=== PATIENT | male | born 1970 | race Caucasian/White ===

== ENCOUNTER 2022-11-17 09:39 | Emergency (ER) | payer OTHER, SELFPAY ==
--- NOTE | ~2022-11-17 | CT_ITS ---
EXAMINATION: CT ABDOMEN AND PELVIS WITHOUT CONTRAST CLINICAL INFORMATION: Constipation. Rule out small bowel obstruction. COMPARISON: None available. TECHNIQUE: Multidetector volumetric imaging was performed from the superior aspect of the liver through the pubic symphysis. Sagittal and coronal reformatted images were obtained on the technologist's workstation. Lack of intravenous and oral contrast limits visceral evaluation. This CT examination was performed using dose optimization techniques as appropriate, variously including the following: *Automated exposure control *Adjustment of mA and/or kV according to patient size (this includes techniques or standardized protocols for targeted exams where dose is matched to indication/reason for exam; i.e. extremities or head) *Use of iterative reconstruction technique DLP: 953 mGy-cm FINDINGS: LUNG BASES: The visualized lung bases are unremarkable. LIVER, GALLBLADDER, AND BILIARY TREE: Diffuse decreased hepatic attenuation without focal abnormality. No gallbladder/biliary abnormality. PANCREAS: Mild to moderate fatty atrophy most pronounced in the head without surrounding abnormality. SPLEEN: 14.0 cm without focal abnormality. ADRENAL GLANDS: Unremarkable. KIDNEYS AND URETERS: The kidneys are normal in size, shape, and attenuation. No hydronephrosis, hydroureter, or calculi seen. No perinephric stranding. BLADDER: Unremarkable. GASTROINTESTINAL TRACT: The stomach, small bowel and appendix are unremarkable. The colon and rectum are unremarkable. ABDOMINAL WALL: No significant hernia is appreciated. LYMPH NODES: No lymphadenopathy. VASCULAR: Unremarkable. PELVIC VISCERA: Unremarkable. OSSEOUS STRUCTURES: L4-L5 mild degenerative disc disease, grade 1 anterolisthesis, bilateral neural foraminal narrowing and facet arthropathy without acute abnormality. CT/CT abdomen pelvis wo IV con IMPRESSION: 1. No acute intra-abdominal/pelvic abnormality to explain the patient's symptoms. 2. Hepatic steatosis and mild enlargement without focal abnormality. 3. Pancreatic fatty atrophy without associated abnormality. 4. Borderline enlargement. 5. L4-L5 degenerative changes as detailed above.
[2022-11-17 09:41] VITALS: BP 139/88; PULSE 90; RESP 18; TEMP 36.7; O2SAT 99; BMI 39.0
--- NOTE | 2022-11-17 10:22 | ED.ABDPAIN ---
HPI - Abdominal Pain General Chief Complaint: Abdominal Pain Stated Complaint: Constipation Time Seen by Provider: 11/17/22 10:02 Source: patient Mode of arrival: ambulatory Limitations: no limitations History of Present Illness HPI narrative: 52-year-old male with a history of hypertension, hepatitis C, former substance use presents the ER with complaints of 1 week of abdominal bloating, distention, constipation. Patient reports he initially had 2 days of nausea and vomiting but after he passed a small stool on Tuesday the symptoms resolved. He has not tried any nmvs-rag-nwopqlh medications. He has not tried any dietary changes. He went to his primary care doctor today and he was referred into the ER to rule out a obstruction. No previous history of same. No history of abdominal surgery Related Data Previous Rx's Medication Instructions Recorded docusate sodium 100 mg capsule 100 mg PO BID #60 caps 11/17/22 (Colace) lactulose 10 gram/15 mL oral 10 g (15 mL) PO BEDTIME PRN 11/17/22 solution constipation #90 mL polyethylene glycol 3350 17 17 g PO DAILY #238 grams 11/17/22 gram/dose oral powder (Miralax) Allergies Allergy/AdvReac Type Severity Reaction Status Date / Time No Known Allergies Allergy Unverified 12/20/19 16:05 Review of Systems Review of Systems Yes all other systems are reviewed and are negative Constitutional: Reports no additional constitutional complaints, Denies body ache(s), Denies chills, Denies fever(s), Denies headache(s) and Denies weakness Eyes: Reports no additional eye complaints and Denies change in vision Reports system reviewed and no additional complaints, except as documented, Denies dizziness, Denies headache(s), Denies nasal congestion, Denies nasal discharge and Denies neck pain Cardiovascular: Reports no additional cardiovascular complaints, Denies chest pain, Denies leg edema and Denies dyspnea Respiratory: Reports no additional respiratory complaints, Denies cough and Denies dyspnea Gastrointestinal: Reports no additional gastrointestinal complaints, Reports abdominal pain, Reports constipation, Denies diarrhea, Reports nausea and Reports vomiting Genitourinary: Denies urinary incontinence Musculoskeletal: Reports no additional musculoskeletal complaints, Denies back pain, Denies arthralgias, Denies joint swelling, Denies neck pain, Denies numbness and Denies tingling Skin/Breast: Reports system reviewed and no additional complaints, except as docu and Denies rash Reports system reviewed and no additional complaints, except as documented, Denies dizziness, Denies headache(s), Denies numbness, Denies tingling and Denies weakness PMFSH Past Medical History Attestation statement: The following information was validated with the patient. Source: old records reviewed and nursing notes reviewed Social History Social History Advance Directives: No Advance Directives Information Provided: No Physical Exam ED Vital Signs: Vital Signs - 24 hr 11/17/22 09:41 11/17/22 11:00 Temperature 98.1 F 98.2 F Pulse Rate 90 83 Respiratory Rate 18 16 Blood Pressure 139/88 136/88 Pulse Oximetry 99 95 Oxygen Delivery Method Room Air Room Air BMI result Body Mass Index 39.0 Const General: cooperative, healthy appearing, comfortable and no acute distress Orientation/consciousness: patient oriented x3 Limitations: no limitations HENMT Head: Yes normal to inspection Ears: hearing grossly normal bilaterally Eyes General: appearance normal, both eyes and all related structures Pupils: Equal, round and reactive pupils present Neck Neck: Yes normal visual inspection Chest Chest palpation & inspection: normal inspection of the chest Resp Effort & Inspection: normal respiratory effort Auscultation: clear to auscultation bilaterally Cardio Rate: regular rate Rhythm: regular rhythm Peripheral pulses: Peripheral pulses 2+ throughout GI Other: Abdominal distension, soft, mild diffuse tenderness, hypoactive bowel sound Inspection: Yes normal to inspection Skin General skin exam: no rashes or lesions noted Neuro General: patient oriented x3 and moves all extremities Cranial nerves: Yes Equal, round and reactive pupils present Cognition (Neuro): normal cognition Gait exam (Neuro): Normal gait present Course Course Course Narrative: CT shows no evidence of bowel obstruction. On my independent interpretation there is a mews-hd-ywwhblnc stool burden. Patient was started on a bowel regimen with lactulose p.r.n.. Reviewed dietary changes at home. Reviewed worrisome signs and symptoms of when to return to the emergency room. Comfortable plan for discharge home Medical Decision Making Medical Decision Making MDM Narrative: 52-year-old male with a history of hypertension presents the ER with complaints of 1 week of abdominal bloating, distention, discomfort, constipation. Patient initially had some vomiting for 2 days but this has been resolved after passing a small stool on Tuesday. Patient was seen by primary care referred into the ER for further evaluation On arrival patient has a abdomen which is distended but soft, mild please tender with hypoactive bowel sounds. Will check labs, CT Differential Diagnosis Differential Diagnoses: The differential diagnosis associated with the presentation includes Constipation, obstruction Lab Data MDM Lab Attestation statement: I reviewed the patient's lab results. 11/17/22 10:42 11/17/22 10:42 Labs: Lab Results 11/17/22 11/17/22 Range/Units 10:42 10:42 WBC 6.2 (4.8-10.8) X10*3/uL RBC 4.40 L (4.60-5.80) X10*6/uL Hgb 13.8 L (14.0-18.0) g/dl Hct 40.2 L (42.0-52.0) % MCV 91.4 (80.0-98.0) fL MCH 31.4 (27.0-33.0) pg MCHC 34.3 (31.0-36.0) g/dl RDW 11.6 (11.0-16.0) % Plt Count 120 L (160-400) X10*3/uL MPV 11.8 (9.4-12.4) fL Immature Gran % (Auto) 0.6 H (0.0-0.4) % Neut % (Auto) 65.2 (45-73) % Lymph % (Auto) 24.9 (20-40) % [place] % (Auto) 6.9 (2-11) % Eos % (Auto) 1.9 (0-4) % Baso % (Auto) 0.5 (0-2) % Lymph # (Auto) 1.5 (1.2-4.9) X10*3/uL [place] # (Auto) 0.4 (0.1-1.2) X10*3/uL Eos # (Auto) 0.1 (0.0-0.4) X10*3/uL Baso # (Auto) 0.0 (0.0-0.2) X10*3/uL Abs Immat Gran (auto) 0.04 H (0.00-0.03) X10*3/uL Absolute Neuts (auto) 4.0 (2.0-8.3) x10*3/uL Absolute Nucleated RBC 0.000 (0.0-0.012) X10*3/uL Nucleated RBC % (auto) 0.0 (0.0-0.2) /100WBC Sodium 137 (135-145) mmol/L Potassium 4.5 (3.3-5.1) mmol/L Chloride 102 (96-108) mmol/L Carbon Dioxide 28 (22-29) mmol/L Anion Gap 12 (12-20) BUN 14 (9-16) mg/dL Creatinine 0.87 (0.5-1.4) mg/dL Estim Creat Clear Calc 137.9 Estimated GFR > 60 Random Glucose 129 H (60-115) mg/dL Calcium 9.2 (8.4-10.2) mg/dL Total Bilirubin 0.3 (0.0-1.0) mg/dL Direct Bilirubin 0.1 (0.0-0.5) mg/dL AST 59 H (5-37) U/L ALT 94 H (0-40) U/L Alkaline Phosphatase 77 (39-117) U/L Total Protein 8.1 H (6.5-8.0) g/dL Albumin 4.1 (3.5-5.0) g/dL Lipase 27 (8-78) U/L Independent Interpretation I performed an independent interpretation of an: CT Scan Interpretation: I independently reviewed the CT scan reviewed the radiologist's report, there is a gism-mn-kuryosbm stool burden also noted on my independent interpretation Radiology Impression Discussion of test interpretation with radiology: I have reviewed the radiologist's reading. Radiologist Impression: [place] [id number] CT Scan Report Signed Patient: Rich Rodriguez MR#: [id number] : 1970 Acct:[id number] Age/Sex: 52 / M ADM Date: 11/17/22 Loc: HO.ED Attending Dr: Ordering Physician: Cheyanne Randall NP Date of Service: 11/17/22 Procedure(s): CT abdomen pelvis wo IV con Accession Number(s): [id number] cc: Cheyanne Randall NP~ EXAMINATION: CT ABDOMEN AND PELVIS WITHOUT CONTRAST? CLINICAL INFORMATION: Constipation. Rule out small bowel obstruction. COMPARISON: None available. TECHNIQUE: Multidetector volumetric imaging was performed from the superior aspect of the liver through the pubic symphysis. Sagittal and coronal reformatted images were obtained on the technologist's workstation. Lack of intravenous and oral contrast limits visceral evaluation. This CT examination was performed using dose optimization techniques as appropriate, variously including the following: *Automated exposure control *Adjustment of mA and/or kV according to patient size (this includes techniques or standardized protocols for targeted exams where dose is matched to indication/reason for exam; i.e. extremities or head) *Use of iterative reconstruction technique DLP: 953 mGy-cm FINDINGS: LUNG BASES: The visualized lung bases are unremarkable.? LIVER, GALLBLADDER, AND BILIARY TREE: Diffuse decreased hepatic attenuation without focal abnormality. No gallbladder/biliary abnormality. PANCREAS: Mild to moderate fatty atrophy most pronounced in the head without surrounding abnormality. SPLEEN: 14.0 cm without focal abnormality. ADRENAL GLANDS: Unremarkable.? KIDNEYS AND URETERS: The kidneys are normal in size, shape, and attenuation. No hydronephrosis, hydroureter, or calculi seen. No perinephric stranding. ? BLADDER: Unremarkable.? GASTROINTESTINAL TRACT: The stomach, small bowel and appendix are unremarkable. The colon and rectum are unremarkable.? ABDOMINAL WALL: No significant hernia is appreciated.? LYMPH NODES: No lymphadenopathy. VASCULAR: Unremarkable. PELVIC VISCERA: Unremarkable.? OSSEOUS STRUCTURES: L4-L5 mild degenerative disc disease, grade 1 anterolisthesis, bilateral neural foraminal narrowing and facet arthropathy without acute abnormality.? CT/CT abdomen pelvis wo IV con IMPRESSION: ? 1. No acute intra-abdominal/pelvic abnormality to explain the patient's symptoms. 2. Hepatic steatosis and mild enlargement without focal abnormality. 3. Pancreatic fatty atrophy without associated abnormality. 4. Borderline enlargement. 5. L4-L5 degenerative changes as detailed above. ? Discharge Plan Discharge Clinical Impression: Constipation Patient Disposition: Home, Self-Care Instructions: Constipation (ED) Additional Instructions: Your CT scan shows no signs of a blockage. You do have mild constipation. Increase fluids and fiber in your diet Return for vomiting, worsening pain. Follow-up with your primary care doctor for any continued symptoms Prescriptions: New polyethylene glycol 3350 [Miralax] 17 gram/dose powder 17 g PO DAILY Qty: 238 0RF docusate sodium [Colace] 100 mg capsule 100 mg PO BID Qty: 60 0RF lactulose 10 gram/15 mL solution 10 g PO BEDTIME PRN (Reason: constipation) Qty: 90 0RF Referrals: Regan Palma MD [Primary Care Provider] - 1 week
[2022-11-17 10:45] LABS: MANUAL DIFF FLAG NO
[2022-11-17 10:51] LABS: Basophils Percent Auto 0.5 % (0-2); Eosinophils Absolute Auto 0.1 X10*3/uL (0.0-0.4); Eosinophils Percent Auto 1.9 % (0-4); Hematocrit 40.2 % (42.0-52.0); Hemoglobin 13.8 g/dl (14.0-18.0); Imm Gran Abs Auto 0.04 X10*3/uL (0.00-0.03); Imm Gran Pct Auto 0.6 % (0.0-0.4); Lymphocytes Absolute Auto 1.5 X10*3/uL (1.2-4.9); Lymphocytes Percent Auto 24.9 % (20-40); Mean Corpuscular HGB Conc 34.3 g/dl (31.0-36.0); Mean Corpuscular Hemoglobin 31.4 pg (27.0-33.0); Mean Corpuscular Volume 91.4 fL (80.0-98.0); Mean Platelet Volume 11.8 fL (9.4-12.4); Monocytes Absolute Auto 0.4 X10*3/uL (0.1-1.2); Monocytes Percent Auto 6.9 % (2-11); Neutrophils Percent Auto 65.2 % (45-73); Platelet Count 120 X10*3/uL (160-400); Red Cell Distribution Width 11.6 % (11.0-16.0); White Blood Count 6.2 X10*3/uL (4.8-10.8)
[2022-11-17 11:00] VITALS: BP 136/88; PULSE 83; RESP 16; TEMP 36.8; O2SAT 95
[2022-11-17 11:01] LABS: Alanine Aminotransferase 94 U/L (0-40); Albumin Level 4.1 g/dL (3.5-5.0); Alkaline Phosphatase 77 U/L (39-117); Anion Gap 12 (12-20); Aspartate Amino Transferase 59 U/L (5-37); Bilirubin Direct 0.1 mg/dL (0.0-0.5); Bilirubin Total 0.3 mg/dL (0.0-1.0); Blood Urea Nitrogen 14 mg/dL (9-16); Calcium 9.2 mg/dL (8.4-10.2); Carbon Dioxide 28 mmol/L (22-29); Chloride 102 mmol/L (96-108); Creatinine Clr Calc Pharmacy 137.9; Estimated Glomerular Filt Rate > 60; Glucose Random 129 mg/dL (60-115); Lipase 27 U/L (8-78); Potassium 4.5 mmol/L (3.3-5.1); Sodium 137 mmol/L (135-145); Total Protein 8.1 g/dL (6.5-8.0)
== END 2022-11-17 12:19 | disposition home or self-care (01) ==
PROVIDERS: Nurse Practitioner Family; Emergency Provider Emergency Medicine; PCP Internal Medicine
DX: K59.00 Constipation, unspecified (principal); I10 Essential (primary) hypertension; R10.2 Pelvic and perineal pain; Z79.899 Other long term (current) drug therapy
CPT/HCPCS: 36415; 74176; 80048; 80076; 83690; 85025; 99283

== ENCOUNTER 2022-11-30 11:42 | Outpatient (AMB) | payer OTHER, SELFPAY ==
[2022-11-30 12:28] VITALS: BP 142/80; PULSE 95; TEMP 36.1; O2SAT 96; BMI 39.3
--- NOTE | 2022-11-30 12:28 | MHC.OFFWIV ---
Intake Vital Signs 11/30/22 12:28 Height 5 ft 11 in Weight 127.97 kg BMI 39.3 BP 142/80 H Blood Pressure Location Lt brachial Position Sitting Pulse 95 Pulse Source Pulse Oximeter Temp 97 F Temp Source Temporal Artery Scan Pulse Oximetry (%) 96 Oxygen Delivery Method Room Air Intake Visit Reasons: [employer] RT Foot swelling/pain-Venous Insuff Intake Note: Pt is here c/o right foot swelling. Pt states he was diagnosed with venous insufficiency. Patient Tobacco Use Status: Never used Tobacco Allergies No Known Allergies Allergy (Unverified 11/30/22 12:31) Do you need a note to return to daycare/school/sports/work: Yes HPI HPI Comments History of Present Illness Details 1248 52-year-old male history of hep C, former substance abuse, hypertension, venous insufficiency presenting for evaluation of right foot swelling for the past few months worsening over the past few days . Patient reports he was told he had venous insufficiency and he is not sure if this is related. He had an ultrasound last week for this same complaint which was negative for DVT he had it done at [facility]. He had been told he should get an x-ray of the right foot, he tells me the reason he came in today is because he is having pain, swelling fluctuates and he is currently being followed by vascular. Not on blood thinners. He reports pain is worse with movement better at rest. Physical exam with edema to right foot, ankle. Palpable 2+ pulses anterior tib, posterior tib , dorsalis pedis and popliteal pulses Concerns for inflammatory arthritis versus sprain or strain, low suspicion for DVT as patient did have a negative study last week. Symptoms are unchanged just worsening pain. Unlikely arterial occlusion. Likely fracture, dislocation. Other differentials include inflammatory arthritis. No signs of neurovascular compromise or threat to limb Plan x-ray, prednisone. Educated patient on diagnosis and treatment plan, answered all question, patient verbalizes understanding. At this time patient will be discharged home, advised to return with new or worsening symptoms. Educated on worrisome signs and symptoms and when to return. At this time I feel comfortable discharge home.. [facility] Social History Patient Tobacco Use Status: Never used Tobacco Review of Systems Const Details: Constitutional : No Weight loss, No Fever, No Chills, No Fatigue, No Malaise ENT/Mouth : No sore throat, No Rhinorrhea Eyes: No Eye Pain, No Swelling, No Redness Cardiovascular : No Chest Pain, No SOB, No Dyspnea on Exertion, No Orthopnea, + Edema, No Palpitations Respiratory : No Cough, No Sputum, No Wheezing Gastrointestinal : No Nausea, No Vomiting, No Diarrhea, No Constipation, No abdominal Pain, No Hematochezia, No Melena Genitourinary : No Dysuria, No Urinary Frequency, No Hematuria, Musculoskeletal : No joint pain, No Myalgias, No Joint Swelling Skin : No Skin Lesions, No rash Neuro : No Weakness, No Numbness, No Dizziness, No Headache Psych : No Anxiety/Panic, No Depression All other systems reviewed and are negative All systems reviewed & are unremarkable except as noted in HPI and below Physical Exam Vital Signs: Last Vital Signs Temp 97 F 11/30/22 12:28 Pulse 95 11/30/22 12:28 BP 142/80 H 11/30/22 12:28 Pulse Ox 96 11/30/22 12:28 Oxygen Delivery Method Room Air 11/30/22 12:28 BMI result Body Mass Index 39.3 vss Appearance: Alert.? Oriented X3.? No acute distress.? Head: Normocephalic, atraumatic, no step-offs or deformities Eyes: Pupils equal, round and reactive to light.? CVS: Normal heart rate and rhythm.? Pulses normal.? Respiratory: No respiratory distress.? Breath sounds normal.? Abdomen: Soft and nontender.? Skin: Skin warm and dry.? Normal skin color.? Normal skin turgor.? Extremities: 1+ edema to right foot, ankle. Palpable 2+ pulses anterior tib, posterior tib , dorsalis pedis and popliteal pulses. Negative Tara bilaterally Back: No midline tenderness, no C-spine tenderness, full range of motion, no CVA tenderness bilaterally Neuro: Oriented X 3.? No motor deficit.? No sensory deficit. CN 2-12 intact Assessment & Plan Assessment & Plan (1) Lower extremity edema: Code(s): R60.0 - Localized edema Plan Take your medications as prescribed. If you were prescribed antibiotics today, it is important that you take your medication to their entirety, do not skip any doses, do not finish them early. Follow-up with your primary care provider this week. Return to the emergency department with new or worsening symptoms. Such as fevers, chills, chest pain, shortness of breath, nausea, vomiting, dizziness, headache, vision changes, lethargy In case of emergency call 911 Orders: Orders XR foot RT min 3V Today R60.0 - Localized edema XR ankle RT 2V Today R60.0 - Localized edema Medications: New prednisone 40 mg (2 x 20 mg) PO DAILY 5 days 10 tabs 0RF naproxen 500 mg PO BID PRN 14 tabs 0RF pain Coding Level of Care Code Est Pt Level 3 (67074) Diagnoses Lower extremity edema R60.0
== END 2022-11-30 13:28 | disposition home or self-care (01) ==
PROVIDERS: PCP Internal Medicine; Visit Provider Physician Assistant
DX: R60.0 Localized edema (principal)
CPT/HCPCS: 99213

== ENCOUNTER 2022-11-30 12:55 | Outpatient (REF) | payer OTHER, SELFPAY ==
--- NOTE | ~2022-11-30 | XR_ITS ---
EXAMINATION:XR ankle RT 2V, XR foot RT min 3V VIEWS ACQUIRED: Frontal lateral and oblique CLINICAL INFORMATION: Reason for Exam R60.0 - Localized edema COMPARISON: None available at the time of this dictation. FINDINGS: There is no evidence of acute fracture or dislocation. Intertarsal, tarsometatarsal, metatarsophalangeal and interphalangeal joints are intact. Surrounding soft tissues is normal. , There is a small inferior calcaneal spur. Ankle mortise is preserved. Talar dome is intact. Medial and lateral malleoli are normal. There is partial soft tissue ossification of the interosseous membrane distal tibiofibular. XR/XR ankle RT 2V IMPRESSION: - No fracture. - Small inferior calcaneal spur. - Partial soft tissue ossification of the interosseous membrane distal tibiofibular.
--- NOTE | ~2022-11-30 | XR_ITS ---
EXAMINATION:XR ankle RT 2V, XR foot RT min 3V VIEWS ACQUIRED: Frontal lateral and oblique CLINICAL INFORMATION: Reason for Exam R60.0 - Localized edema COMPARISON: None available at the time of this dictation. FINDINGS: There is no evidence of acute fracture or dislocation. Intertarsal, tarsometatarsal, metatarsophalangeal and interphalangeal joints are intact. Surrounding soft tissues is normal. , There is a small inferior calcaneal spur. Ankle mortise is preserved. Talar dome is intact. Medial and lateral malleoli are normal. There is partial soft tissue ossification of the interosseous membrane distal tibiofibular. XR/XR foot RT min 3V IMPRESSION: - No fracture. - Small inferior calcaneal spur. - Partial soft tissue ossification of the interosseous membrane distal tibiofibular.
== END 2022-11-30 12:56 | disposition home or self-care (01) ==
LOC: HO.HMGCX 12:55
PROVIDERS: PCP Internal Medicine; Visit Provider Physician Assistant
DX: R60.0 Localized edema (principal)
CPT/HCPCS: 73600; 73630

== ENCOUNTER 2022-12-20 13:47 | Outpatient (AMB) | payer OTHER, SELFPAY ==
[2022-12-20 14:45] VITALS: BP 130/78; PULSE 80; TEMP 36.6; O2SAT 97; BMI 39.2
--- NOTE | 2022-12-20 14:45 | MHC.OFFWIV ---
Intake Vital Signs 12/20/22 14:45 Height 5 ft 11 in Weight 281 lb BMI 39.2 BP 130/78 Blood Pressure Location Rt brachial Position Sitting Pulse 80 Pulse Source Pulse Oximeter Temp 97.8 F Temp Source Temporal Artery Scan Pulse Oximetry (%) 97 Intake Visit Reasons: EST/right foot swelling Intake Note: pt is here for c/o right foot swelling and leg swelling Patient Tobacco Use Status: Never used Tobacco Allergies No Known Allergies Allergy (Verified 12/20/22 15:20) Medication List - Last Reconciled 12/20/22 by Jake Walsh MD hydrochlorothiazide 25 mg PO DAILY losartan 50 mg PO DAILY naproxen 500 mg PO BID PRN Do you need a note to return to daycare/school/sports/work: Yes HPI EST/right foot swelling HPI Details 52-year-old male presents to the office for a sick visit. Patient has history of venous insufficiency and varicose veins. He recently had an ultrasound of both his extremities and deep vein thrombosis was ruled out. Presents to the office reporting pain in the right foot. Symptoms have been present an ongoing for the past week. No recent fall or injury. He stands for long duration at work. Patient is wearing compression stockings. Requires a note for work. [facility] Social History Patient Tobacco Use Status: Never used Tobacco Physical Exam Vital Signs: Last Vital Signs Temp 97.8 F 12/20/22 14:45 Pulse 80 12/20/22 14:45 BP 130/78 12/20/22 14:45 Pulse Ox 97 12/20/22 14:45 BMI result Body Mass Index 39.2 Extrem Other: Right and left leg below the knees: Cutaneous discoloration hand swelling. Both ankles are slightly swollen. The forefoot on the right leg is slightly tender. Assessment & Plan Assessment & Plan (1) Venous insufficiency of right leg: Code(s): I87.2 - Venous insufficiency (chronic) (peripheral) Plan: Meloxicam added to the regimen. Note for work given. Patient was advised to keep the foot elevated. Coding Level of Care Code Est Pt Level 3 (83325) Diagnoses Venous insufficiency of right leg I87.2
== END 2022-12-20 15:21 | disposition home or self-care (01) ==
PROVIDERS: PCP Internal Medicine; Visit Provider Internal Medicine
DX: I87.2 Venous insufficiency (chronic) (peripheral) (principal)
CPT/HCPCS: 99213